=== PATIENT | male | born 1985 | race Hispanic/Latino ===

== ENCOUNTER 2017-04-26 02:36 | Emergency (ER) | payer MEDICAID ==
[2017-04-26 02:50] VITALS: BP 140/82; PULSE 97; RESP 16; TEMP 98; O2SAT 98
[2017-04-26] MEDS ORDERED: Tdap Vaccine 0.5 ml Vial (10-64 yrs) IM ONE (03:03)
--- NOTE | 2017-04-26 03:16 | ED PDOC ---
HPI: Head Injury Time Seen by Provider: 04/26/17 03:14 Chief Complaint (Nursing): Trauma Chief Complaint (Provider): HEAD INJURY History Per: Patient (32 Y/O MALE H/O ALCOHOL INTOXICATION HERE FOR HEAD INJURY THAT OCCURRED AFTER TRIP AND FALL ON STAIRS. DENIES ANY LOC. TETANUS UP TO DATE. ) Past Medical History Reviewed: Historical Data, Nursing Documentation, Vital Signs Vital Signs: Last Vital Signs Temp 98 F 04/26/17 02:47 Pulse 97 H 04/26/17 02:47 Resp 16 04/26/17 02:47 BP 140/82 04/26/17 02:47 Pulse Ox 98 04/26/17 02:47 - Family History Family History: States: No Known Family Hx - Allergies Allergies/Adverse Reactions: Allergies Allergy/AdvReac Type Severity Reaction Status Date / Time No Known Allergies Allergy Verified 04/26/17 02:47 Review of Systems ROS Statement: Except As Marked, All Systems Reviewed And Found Negative Physical Exam - Reviewed Nursing Documentation Reviewed: Yes Vital Signs Reviewed: Yes - Physical Exam Appears: Positive for: Well, Non-toxic, No Acute Distress Head Exam: Positive for: ATRAUMATIC, NORMAL INSPECTION, NORMOCEPHALIC Skin: Positive for: Normal Color, Warm, DRY Eye Exam: Positive for: EOMI, Normal appearance, PERRL ENT: Positive for: Normal ENT Inspection Neck: Positive for: Normal, Painless ROM Cardiovascular/Chest: Positive for: Regular Rate, Rhythm Respiratory: Positive for: CNT, Normal Breath Sounds Gastrointestinal/Abdominal: Positive for: Normal Exam, Bowel Sounds, Soft Back: Positive for: Normal Inspection Extremity: Positive for: Normal ROM Neurologic/Psych: Positive for: Alert, Oriented - ECG O2 Sat by Pulse Oximetry: 98 - Progress ED Course And Treament: TETANUS UP TO DATE PATIENT REFUSED CT SCAN OF HEAD D/W AND SEEN BY DR. LUJAN. PATIENT SIGNED AMA PAPERWORK. ADVISED REGARDING RISK OF MISSED HEAD INJURY/ INTRACRANIAL BLEED/CERVICAL SPINE INJURY. Disposition - Clinical Impression Clinical Impression: Laceration of head, Left against medical advice - Patient ED Disposition Is Patient to be Admitted: No - Disposition Disposition: Against Medical Advice Disposition Time: 03:56 Condition: FAIR Additional Instructions: RETURN IN 7 TO 10 DAYS FOR REMOVAL OF JENIFER Instructions: Head Injury (ED), Laceration (ED), Against Medical Advice (ED) Forms: [employer] (Turkmen) Procedure: Wound Repair - Time Performed Time Performed: 03:59 - Time Out Time Out: Site verified - Consent Obtained Consent obtained: Verbal - Performed by Performed by: Mid-level Provider - Indications Indication(s):: Laceration - Location Location:: Scalp Shape:: Linear Dimensions Length cm: 2.0CM - Anesthetic Technique Local/Regional Anesthetic:: Lidocaine 2% w/epi - Irrigated Irrigated with ml of normal saline: 150ML - Complexity Complexity:: Simple (one layer) - Complications Complications: FIVE JENIFER INTERRUPTED.
[2017-04-26] MEDS ORDERED: Lidocaine 2% w Epi 1:100,000 Inj IJ ONE (03:26)
[2017-04-26] MEDS ORDERED: Lidocaine 2% Inj (20ml) ONE (03:28)
== END 2017-04-26 03:35 | disposition home or self-care (01) ==
LOC: H.ER 02:36
DX: S01.01XA Laceration without foreign body of scalp, initial encounter (principal); W10.9XXA Fall (on) (from) unspecified stairs and steps, initial encounter